=== PATIENT | female | born 1990 | race Caucasian/White ===

== ENCOUNTER 2021-04-23 06:20 | Emergency (ER) | payer MEDICAID ==
[2021-04-23] MEDS ORDERED: PRENATAL FORMU1 EAC2 PO (06:25)
[2021-04-23 07:18] LABS: BASO # 0.02 (0.02-0.10); EOS # 0.09 (0.04-0.40); EOS % 1.1 % (1.0-5.0); HEMATOCRIT 36.5 % (37.0-47.0); HEMOGLOBIN 12.4 g/dL (12.5-16.0); LYMPH# 1.33 (1.50-4.00); MEAN CELL VOLUME 84 fl (78-100); MEAN CORPUSCULAR HEMOGLOBIN 29 pg (27-31); MEAN CORPUSCULAR HGB CONC 34 g/dL (33-37); MEAN PLATELET VOLUME 10.3 fl (7.4-10.4); MONO # 0.83 (0.20-0.80); NEU # 5.83 (1.40-6.50); PLATELET COUNT 218 K/mm3 (130-400); RED BLOOD COUNT 4.33 M/mm3 (4.10-5.30); RED CELL DISTRIBUTION WIDTH 12.9 % (11.5-14.5); WHITE BLOOD COUNT 8.1 K/mm3 (4.8-10.8)
[2021-04-23 07:29] LABS: POTASSIUM 4.3 mmol/L (3.5-5.1)
[2021-04-23 07:30] LABS: CALCIUM 8.3 mg/dL (8.3-10.5)
[2021-04-23 07:31] LABS: TOTAL PROTEIN 5.9 g/dL (6.4-8.3)
[2021-04-23 07:33] LABS: TOTAL BILIRUBIN 0.3 mg/dL (0.2-1.2)
[2021-04-23 08:18] LABS: URINE APPEARANCE HAZY; URINE BILIRUBIN NEGATIVE (NEGATIVE); URINE BLOOD NEGATIVE (NEGATIVE); URINE COLOR YELLOW; URINE GLUCOSE NEGATIVE (NEGATIVE); URINE KETONE SMALL (NEGATIVE); URINE LEUKOCYTE ESTERASE NEGATIVE (NEGATIVE); URINE MUCUS PRESENT (NOT PRESENT); URINE NITRATE NEGATIVE (NEGATIVE); URINE PROTEIN(semi-quant) TRACE mg/dL (NEGATIVE); URINE UROBILINOGEN NORMAL (NORMAL)
[2021-04-23] MEDS ORDERED: BONJESTA ER 201 EACH PO (09:15)
[2021-04-23 09:23] VITALS: BP 144/84
== END 2021-04-23 09:30 | disposition home or self-care (01) ==
LOC: ED 06:20
PROVIDERS: Nurse Practitioner
DX: O99.612 Diseases of the digestive system complicating pregnancy, second trimester (principal); K80.20 Calculus of gallbladder without cholecystitis without obstruction; Z3A.24 24 weeks gestation of pregnancy; Z79.899 Other long term (current) drug therapy

== ENCOUNTER 2021-06-12 12:12 | Emergency (ER) | payer MEDICAID ==
[~2021-06-12 12:12] MED LIST: BONJESTA ER 201 EACH PO; PRENATAL FORMU1 EAC2 PO
[2021-06-12 12:47] LABS: BASO # 0.01 (0.02-0.10); EOS # 0.09 (0.04-0.40); EOS % 0.9 % (1.0-5.0); HEMATOCRIT 41.6 % (37.0-47.0); HEMOGLOBIN 13.4 g/dL (12.5-16.0); LYMPH# 1.29 (1.50-4.00); MEAN CELL VOLUME 85 fl (78-100); MEAN CORPUSCULAR HEMOGLOBIN 27 pg (27-31); MEAN CORPUSCULAR HGB CONC 32 g/dL (33-37); MEAN PLATELET VOLUME 9.7 fl (7.4-10.4); MONO # 0.77 (0.20-0.80); NEU # 7.59 (1.40-6.50); PLATELET COUNT 251 K/mm3 (130-400); RED BLOOD COUNT 4.89 M/mm3 (4.10-5.30); RED CELL DISTRIBUTION WIDTH 12.5 % (11.5-14.5); WHITE BLOOD COUNT 9.8 K/mm3 (4.8-10.8)
[2021-06-12 12:53] LABS: URINE APPEARANCE CLEAR; URINE BILIRUBIN NEGATIVE (NEGATIVE); URINE BLOOD NEGATIVE (NEGATIVE); URINE COLOR YELLOW; URINE GLUCOSE NEGATIVE (NEGATIVE); URINE KETONE NEGATIVE (NEGATIVE); URINE LEUKOCYTE ESTERASE NEGATIVE (NEGATIVE); URINE MUCUS PRESENT (NOT PRESENT); URINE NITRATE NEGATIVE (NEGATIVE); URINE PROTEIN(semi-quant) NEGATIVE (NEGATIVE); URINE UROBILINOGEN NORMAL (NORMAL)
[2021-06-12 13:00] LABS: ALBUMIN 3.2 g/dL (3.5-5.0); POTASSIUM 4.4 mmol/L (3.5-5.1)
[2021-06-12 13:01] LABS: CALCIUM 9.1 mg/dL (8.3-10.5)
[2021-06-12 13:03] LABS: TOTAL PROTEIN 6.6 g/dL (6.4-8.3)
[2021-06-12 13:04] LABS: TOTAL BILIRUBIN 0.3 mg/dL (0.2-1.2)
[2021-06-12 15:39] VITALS: BP 148/85
== END 2021-06-12 15:37 | disposition home or self-care (01) ==
LOC: ED 12:12
PROVIDERS: Family Medicine
DX: O99.613 Diseases of the digestive system complicating pregnancy, third trimester (principal); K80.20 Calculus of gallbladder without cholecystitis without obstruction; Z3A.31 31 weeks gestation of pregnancy
CPT/HCPCS: J7030

== ENCOUNTER 2021-06-14 10:08 | Emergency (ER) | payer MEDICAID ==
[~2021-06-14] VITALS: Ht 160 cm; Wt 97.5 kg
[2021-06-14 10:11] VITALS: BP 147/91
[2021-06-14] MEDS ORDERED: AUGMENTIN 875-1 EAC1 PO (10:45)
== END 2021-06-14 10:54 | disposition home or self-care (01) ==
LOC: ED 10:08
DX: O9A.213 Injury, poisoning and certain other consequences of external causes complicating pregnancy, third trimester (principal); S61.253A Open bite of left middle finger without damage to nail, initial encounter; O99.613 Diseases of the digestive system complicating pregnancy, third trimester; K80.20 Calculus of gallbladder without cholecystitis without obstruction; Z3A.32 32 weeks gestation of pregnancy; W54.0XXA Bitten by dog, initial encounter

== ENCOUNTER → 2022-01-30 | Outpatient (CLI) | payer MEDICAID ==
[~2022-01-30] MED LIST changes: +AUGMENTIN 875-1 EAC1 PO
== END ==
LOC: RAD 17:45
DX: M51.36 Other intervertebral disc degeneration, lumbar region (principal); M47.816 Spondylosis without myelopathy or radiculopathy, lumbar region; Q85.01 Neurofibromatosis, type 1; G93.89 Other specified disorders of brain; G95.0 Syringomyelia and syringobulbia; G43.109 Migraine with aura, not intractable, without status migrainosus
CPT/HCPCS: A9585